=== PATIENT | male | born 1945 | race Caucasian/White ===

== ENCOUNTER 2024-06-15 05:40 | Day surgery (SDC) | payer MEDICARE ==
--- NOTE | 2024-06-11 10:01 | EKG ---
[facility] Test Date: 2024-06-11 Test Time: 10:24:06 Pat Name: NANNETTE TURNER Department: [facility] Room: Gender: M Regulatory Affairs Analyst: [id number] [phone] 1945 Requested By: SAMANTHA SHAH Order Number: [id number] Reading MD: Reynaldo Ortega Measurements Intervals [place] Rate: 94 P: 0 SD: 182 QRS: -19 QRSD: 93 T: 36 QT: 357 QTc: 447 Interpretive Statements Uncertain irregular supraventricular rhythm Supraventricular bigeminy No previous ECG available for comparison Electronically Signed On 06-11-2024 19:18:20 SEWER TAPPER by Reynaldo Ortega Please click the below link to view image of tracing.
[2024-06-11 10:25] VITALS: BP 111/69; PULSE 80; RESP 15; TEMP 97.9
[2024-06-11 10:27] LABS: APPEARANCE,URINE CLEAR (CLEAR); BILIRUBIN,URINE NEGATIVE (NEGATIVE); COLOR,URINE YELLOW (YELLOW); GLUCOSE, URINE (UA) NEGATIVE (NEGATIVE); KETONES,URINE NEGATIVE (NEGATIVE); LEUKOCYTE ESTERASE ,URINE NEGATIVE Leu/uL (NEGATIVE); NITRATE,URINE NEGATIVE (NEGATIVE); OCCULT BLOOD,URINE NEGATIVE (NEGATIVE); PH,URINE 5.5 (5.0-8.0); PROTEIN,URINE 10 mg/dL (NEGATIVE); UROBILINOGEN,URINE 0.2 mg/dL (0.2-1.0)
[2024-06-11 10:30] LABS: BASOPHILS # (AUTO) 0.05 K/uL (0.00-0.20); BASOPHILS % (AUTO) 0.6 % (0.0-5.0); EOSINOPHILS # (AUTO) 0.23 K/uL (0.00-0.70); EOSINOPHILS % (AUTO) 2.7 % (0.0-8.0); HEMATOCRIT 51.1 % (42-54); IMMATURE GRANULOCYTE ABSOLUTE 0.04 K/uL (0-1); LYMPHOCYTES # (AUTO) 1.6 K/uL (1.0-4.8); LYMPHOCYTES % (AUTO) 18.9 % (21.0-51.0); MEAN CORPUSCULAR HEMOGLOBIN 30.7 pg (27.0-33.0); MEAN CORPUSCULAR HGB CONC 33.5 g/dL (32.0-36.0); MEAN CORPUSCULAR VOLUME 91.7 fL (79-99); MONOCYTES % (AUTO) 12.1 % (3.0-13.0); NEUTROPHILS # (AUTO) 5.6 K/uL (1.8-7.7); NEUTROPHILS % (AUTO) 65.2 % (40.0-77.0); PLATELET COUNT (AUTO) 145 K/uL (130-400); RED BLOOD CELL COUNT(AUTO) 5.57 MIL/uL (4.50-6.20); RED CELL DISTRIBUTION WIDTH 13.7 % (11.0-15.5); WHITE BLOOD COUNT (AUTO) 8.6 K/uL (4.8-10.8)
[2024-06-11 10:35] LABS: ADD UA MICROSCOPIC YES
[2024-06-11 10:37] LABS: MUCUS,URINE FEW LPF (None Seen); RBC,URINE 0-1 /HPF (0-1); WBC,URINE 0-1 /HPF (0-1)
[2024-06-11 10:39] LABS: INR 1.16 (0.85-1.15); PROTHROMBIN TIME 12.8 SEC (9.6-11.6)
[2024-06-11 10:40] LABS: PARTIAL THROMBOPLASTIN TIME 33.1 SEC (26.3-35.5)
[2024-06-11 10:41] LABS: CREATININE 1.2 mg/dL (0.5-1.3); POTASSIUM 3.8 mmol/L (3.5-5.1)
[2024-06-11 10:45] LABS: B-TYPE NATRIURETIC PEPTIDE 222 pg/mL (0-100)
--- NOTE | 2024-06-11 10:48 | HMCIMG ---
CHEST 1VW REASON: preop COMPARISON: None. FINDINGS: Single view of the chest was obtained. Lungs are clear. Heart size is normal. There is no pulmonary vascular congestion. Mediastinum and bony thorax appear unremarkable. IMPRESSION: 1. Normal single view chest x-ray.
--- NOTE | 2024-06-12 17:02 | NUR ---
notified dr pabon informed pt on eliquis received instructions to have pt hold 48 hrs prior. pt notified
[2024-06-15] VITALS (11 sets, daily range): BP systolic 91–110; BP diastolic 60–75; PULSE 64–108; RESP 9–20; TEMP 97.3–97.5
[~2024-06-15] VITALS: Ht 182.9 cm; Wt 85.2 kg
[~2024-06-15 05:40] MED LIST: APIX5TAB PO; DIGO125T71 PO; FURO20TA4 PO; GUAI-776 PO; METO200T37 PO; MVI PO; PANT20TA18 PO; SIMV-43 PO; SODI44SP13 NS
[2024-06-15] MEDS: 0.9%NACL 1000ML 1,000 ML IV SCH (06:48)
[2024-06-15] MEDS ORDERED: IOHEXOL 350 MG/ML 100ML INFUS..BTL IV ONE (07:14)
[2024-06-15] MEDS ORDERED: LIDOCAINE HCL 400MG/20ML VIAL ONE (07:14)
[2024-06-15] MEDS ORDERED: HEParin-NS 1,000 UNIT/500 ML 1,000 ML IV ONE (07:15)
[2024-06-15] MEDS ORDERED: NITROGLYCERIN 50MG VIAL ONE (07:15)
[2024-06-15] MEDS ORDERED: HEParin 10,000 UNIT/10ML (1,000 UNIT/ML) VIAL ONE (07:18)
[2024-06-15] MEDS ORDERED: MIDAZOLAM HCL 1 MG/ML 2ML VIAL ONE (07:30)
[2024-06-15] MEDS ORDERED: FENTanyl CITRate PF 50 MCG/1 ML 2ML VIAL ONE (07:30)
[2024-06-15] MEDS ORDERED: cloPIDOgrel 300MG TAB ONE (09:09)
[2024-06-15] MEDS ORDERED: ASPIRIN 325MG EC TAB PO ONE (09:09)
[2024-06-15] MEDS ORDERED: 0.9%NACL 1000ML 1,000 ML IV SCH (09:30)
--- NOTE | 2024-06-15 09:54 | PRN ---
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 Following sterile prep and drape, a time out was performed, then moderate sedation was administered, 1mg of Versed and 50mcg of Fentanyl, then 1% Lidocaine was infiltrated into the right femoral groin. Using a Modified Seldinger technique, a 6Fr Sheath was inserted into the right common femoral artery. While under fluoroscopic guidance, diagnostic coronary catheters were advanced over a wire into the central circulation where they were aspirated, flushed and placed to pressure monitoring, once the wire was removed. Coronary Angio: The left and right coronary arteries were engaged with appropriate catheters and angiography was performed under continuous pressure monitoring. Left Heart Catheterization: A JR4 catheter was inserted into the LV and the pressure was recorded, then the catheter was removed from the LV. Cardiac Findings: Right dominant system LM: Medium caliber vessel with mild luminal irregularities. The vessel bifurcates into the LAD and LCX. LAD: Medium caliber vessel with 20-30% stenosis in the proximal LAD and 80% stenosis in the distal LAD. ADAN 3 blood flow. DIAG1: Small caliber vessel with mild luminal irregularities. DIAG2: Small caliber vessel with mild luminal irregularities. LCx: Medium caliber vessel with mild luminal irregularities. Ramus: Small caliber vessel with mild luminal irregularities. OM1: Medium caliber vessel with mild luminal irregularities. RCA: Medium caliber vessel with 20% stenosis in the ostial RCA. The remainder of the vessel has mild luminal irregularities. RPDA: Small caliber vessel with mild luminal irregularities. RPLV: Small caliber vessel with mild luminal irregularities. LVEDP: 8 mmHg Medications given: Versed 2mg, Fentanyl 75mcg, Heparin 6500 units, Aspirin 325 mg, Clopidogrel 600 mg, IC nitroglycerin 400 mcg Coronary Intervention: Guide catheter: JL4 Guidewire: IFR wire After reviewing the above-mentioned findings the decision was made to further evaluate the LAD. The patient was administered heparin 75 units/kg x1 dose, aspirin 325 mg x 1 dose and clopidogrel 600 mg x 1 dose. We then advanced the JL4 guide catheter an IFR wire into the ostium LAD. We then normalized the IFR wire and then advanced it into the distal LAD. IFR was then performed in the stenosis in the distal LAD was deemed to be hemodynamically significant, 0.87. We then proceeded with balloon angioplasty (2.25 x 10 mm) and ERNESTINE placement (Medtronic regine Otero 2.5 x 15 mm and 2.5 x 8mm). The stents were post dilated using the stent balloon, up to 2.8 mm, achieving optimal results. Repeat angiography then revealed widely patent stent in the distal LAD and ADAN 3 blood flow distally. The IFR wire and JL4 guide catheter were then removed. The patient tolerated the procedure well and without issue. Complications: None Conscious Sedation Monitoring: Under my direct order and supervision, medication for moderate conscious sedation was administered by the nursing staff and the patients level of consciousness and physiological status was monitored by an independent trained nurse. Closure of Access Site: After the case completed the sheath was pulled and a 6Fr Angioseal was deployed in the right common femoral artery without complication. Conclusion: 1. 1V CAD, 80% stenosis in the distal LAD, assessed by iFR (hemodynamically significant: 0.87) s/p successful PCI with balloon angioplasty (Euphora 2.25x10 mm) and overlapping ERNESTINE placement (Medtronic Regine Otero 2.5x15 mm and 2.5x8 mm) in the distal LAD. The stent was then post dilated (up to 2.8 mikel) achieving optimal results. 2. Nonobstructive CAD (20-30% stenosis in the proximal LAD and 20% stenosis in the ostial RCA) 3. HERNANDEZ (anginal equivalent) 4. 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 Abnormal Lexiscan stress test (small size, moderate intensity, fixed perfusion defect in the mid/apical anterior septal wall) done 05/2024 6. Persistent atrial fibrillation on anticoagulation Recommendation: 1. Continue goal directed medical therapy 2. Start clopidogrel 75 mg daily. The patient will remain on triple therapy (Eliquis, aspirin, and clopidogrel) for 1 month and then aspirin will be discontinued (07/13/2024). 3. Restart Eliquis tonight 4. Please start NS at 100 mL/hr x 3 hours. 5. Groin precautions. 6. 4 hours of bedrest 7. No driving x 48 hours 8. No strenuous activity or heavy lifting x 2 weeks 9. Okay to discharge home once bedrest is complete and the patient's femoral access site remains soft to palpation and free of significant bleeding, bruising, or hematoma formation. 10. Please have the patient follow up with Cardiology, Dr. Patricio aZpien, 1-2 weeks after discharge. PATRICIO ZAPIEN MD Jun 15, 2024 09:54
[2024-06-15] MEDS ORDERED: AEC81 PO (11:56)
[2024-06-15] MEDS ORDERED: CLOP75TA32 PO (11:58)
== END 2024-06-15 13:30 ==
LOC: DAH 05:40
PROVIDERS: ATTEND Internal Medicine Cardiovascular Disease
DX: R94.39 Abnormal result of other cardiovascular function study (principal); I25.118 Atherosclerotic heart disease of native coronary artery with other forms of angina pectoris; I48.19 Other persistent atrial fibrillation; R07.9 Chest pain, unspecified; R06.09 Other forms of dyspnea; E78.5 Hyperlipidemia, unspecified; I50.20 Unspecified systolic (congestive) heart failure; E66.9 Obesity, unspecified; K21.9 Gastro-esophageal reflux disease without esophagitis; Z79.899 Other long term (current) drug therapy; Z79.82 Long term (current) use of aspirin; Z79.01 Long term (current) use of anticoagulants; Z68.25 Body mass index [BMI] 25.0-25.9, adult
CPT/HCPCS: 80048; 83880; 85025; 85610; 85730; 81001; 36415; 71045; 93005; 93458; 93571; 85347; A4223 ×3; Q9965 ×2; C1887; C1894 ×2; C1725; C1760; C1874 ×2; C1769; J3010; J3490 ×2; J7030 ×2; J1644 ×2; J2250; Q9967; A4215; A4222; A4221; A4663; A4216; A4606; C9600; 96360; 96361; 99156; 99157